=== PATIENT | male | born 1950 | race Caucasian/White ===

== ENCOUNTER → 2016-12-22 | Outpatient (CLI) | payer MEDICARE, BC | END | disposition home or self-care (01) | LOC: GMAM 10:22 | PROVIDERS: ATTEND Family Medicine | DX: Z12.5 Encounter for screening for malignant neoplasm of prostate (principal) ==

== ENCOUNTER → 2016-12-27 | Outpatient (CLI) | payer MEDICARE | END | disposition home or self-care (01) | LOC: GMAM 12:45 | PROVIDERS: ATTEND Family Medicine | DX: R74.8 Abnormal levels of other serum enzymes (principal) ==

== ENCOUNTER → 2017-05-30 | Outpatient (CLI) | payer MEDICARE | LOC: GMAM 11:13 | PROVIDERS: ATTEND Family Medicine | DX: R74.8 Abnormal levels of other serum enzymes (principal) ==

== ENCOUNTER → 2018-04-03 | Outpatient (CLI) | payer MEDICARE | LOC: GMAM 10:48 | PROVIDERS: ATTEND Family Medicine | DX: Z12.5 Encounter for screening for malignant neoplasm of prostate (principal) ==

== ENCOUNTER → 2018-10-15 | Outpatient (CLI) | payer MEDICARE | LOC: LAB.O 09:41 | PROVIDERS: ATTEND Internal Medicine Hematology & Oncology | DX: E83.110 Hereditary hemochromatosis (principal) ==

== ENCOUNTER → 2018-11-12 | Outpatient (CLI) | payer MEDICARE | LOC: LAB.O 11:27 | PROVIDERS: ATTEND Internal Medicine Hematology & Oncology | DX: E83.110 Hereditary hemochromatosis (principal) ==

== ENCOUNTER → 2018-12-14 | Outpatient (CLI) | payer MEDICARE | LOC: LAB.O 08:59 | PROVIDERS: ATTEND Internal Medicine Hematology & Oncology | DX: E83.110 Hereditary hemochromatosis (principal) ==

== ENCOUNTER → 2019-01-14 | Outpatient (CLI) | payer MEDICARE | LOC: LAB.O 09:41 | PROVIDERS: ATTEND Internal Medicine Hematology & Oncology | DX: E83.110 Hereditary hemochromatosis (principal) ==

== ENCOUNTER → 2019-02-10 | Outpatient (CLI) | payer MEDICARE | LOC: LAB.O 10:19 | PROVIDERS: ATTEND Internal Medicine Hematology & Oncology | DX: E83.110 Hereditary hemochromatosis (principal) ==

== ENCOUNTER → 2019-03-15 | Outpatient (CLI) | payer MEDICARE | LOC: LAB.O 09:44 | PROVIDERS: ATTEND Internal Medicine Hematology & Oncology | DX: E83.110 Hereditary hemochromatosis (principal) ==

== ENCOUNTER → 2019-04-04 | Outpatient (CLI) | payer MEDICARE | LOC: GMAM 10:49 | PROVIDERS: ATTEND Family Medicine | DX: Z12.5 Encounter for screening for malignant neoplasm of prostate (principal); I10 Essential (primary) hypertension; E11.9 Type 2 diabetes mellitus without complications; E78.2 Mixed hyperlipidemia ==

== ENCOUNTER → 2019-04-16 | Outpatient (CLI) | payer MEDICARE | LOC: LAB.O 10:16 | PROVIDERS: ATTEND Internal Medicine Hematology & Oncology | DX: E83.110 Hereditary hemochromatosis (principal) ==

== ENCOUNTER → 2019-08-11 | Outpatient (CLI) | payer MEDICARE | LOC: LAB.O 09:03 | PROVIDERS: ATTEND Internal Medicine Hematology & Oncology | DX: E83.118 Other hemochromatosis (principal) ==

== ENCOUNTER → 2020-04-05 | Outpatient (CLI) | payer MEDICARE | LOC: GMAM 11:52 | PROVIDERS: ATTEND Family Medicine | DX: E53.8 Deficiency of other specified B group vitamins (principal); D50.8 Other iron deficiency anemias; E55.9 Vitamin D deficiency, unspecified; Z12.5 Encounter for screening for malignant neoplasm of prostate; I10 Essential (primary) hypertension; E11.9 Type 2 diabetes mellitus without complications | CPT/HCPCS: 82306; 82607; 82728; 83540; 83550; 85045; G0103 ==